=== PATIENT | female | born 1950 | race American Indian/Alaskan Native ===

== ENCOUNTER 2019-04-11 21:07 | Emergency (ER) | payer OTHER ==
[~2019-04-11] VITALS: Ht 154.9 cm; Wt 99.8 kg
[~2019-04-11 21:07] MED LIST: ASPI-1155 PO; HYDR12.585 PO; LIP20 PO; METO-442 PO
[2019-04-11 21:15] VITALS: BP_SYST 206
--- NOTE | 2019-04-11 21:15 | NUR ---
Pt ambulatory to bed 5 for evaluation
--- NOTE | 2019-04-11 21:15 | NUR ---
Pt c/o flea bits all over body. Small red and raised bumps generalized to BUE, back, and BLE since yesterday. Pt states that she was at a [employer] [place] and there were 2 dogs with fleas present. Pt states that she can't stop scratching bug bites and has tried benadryl and Hydrocortisone creams with no relief. Pt also hypertensive and states that she has been out of Hydrochlorothiazide 25 mg PO daily x 6 months r/t cost. Pt asymptomatic.
--- NOTE | 2019-04-11 21:25 | NUR ---
Dr. Sherman at bedside.
[2019-04-11] MEDS ORDERED: DIPHENHYDRAMINE INJ 50 MG/ML VIAL IM ONE (21:30)
--- NOTE | 2019-04-11 21:55 | NUR ---
Patient given written and verbal discharge instructions and verbalizes understanding. ER MD discussed with patient the results and treatment provided. Patient in stable condition. ID arm band removed. Rx of Bactrim DS and Hydrocortisone given. Patient educated on pain management and to follow up with PMD. Pain Scale 0/10. Opportunity for questions provided and answered. Medication side effect fact sheet provided.
[2019-04-11 22:02] VITALS: BP_SYST 178
== END 2019-04-11 21:55 | disposition home or self-care (01) ==
LOC: SED 21:07
DX: T14.8XXA Other injury of unspecified body region, initial encounter (principal); L98.8 Other specified disorders of the skin and subcutaneous tissue; W57.XXXA Bitten or stung by nonvenomous insect and other nonvenomous arthropods, initial encounter; Y93.89 Activity, other specified; Y99.8 Other external cause status; Y92.89 Other specified places as the place of occurrence of the external cause
CPT/HCPCS: 96372; 99283; J1200

== ENCOUNTER 2019-05-31 19:46 | Emergency (ER) | payer OTHER ==
[~2019-05-31] VITALS: Ht 154.9 cm; Wt 90.7 kg
[2019-05-31 20:04] VITALS: BP_SYST 215
[2019-06-01] MEDS: AZITHROMYCIN 250 MG TABLET PO ONE (03:24)
[2019-06-01 03:28] VITALS: BP_SYST 140
== END 2019-06-01 03:28 | disposition home or self-care (01) ==
LOC: SED 19:46
DX: J18.9 Pneumonia, unspecified organism (principal); I10 Essential (primary) hypertension; E78.5 Hyperlipidemia, unspecified
CPT/HCPCS: 71046; 99283; Q0144